=== PATIENT | female | born 1995 | race Caucasian/White ===

== ENCOUNTER 2016-11-24 11:55 | Emergency (ER) | payer MEDICAID ==
--- NOTE | 2016-11-27 18:24 | ER ---
ADMIT: 11/24/2016 RM/LOC: ER [facility] MR#: [id number] [facility] [address] [place] [id number] SAWANTMARY KAYDEANA Porsha [address] [place] [address] Emergency Room Report SEX: F AGE: 21 : 1995 DATE: 11/24/2016 HISTORY OF PRESENT ILLNESS: The patient is a 21-year-old female, presents to the emergency room tearful, complaining of anxiety for one year, worse in the last couple of days. She says she has had several things happened last year. She lost her . Her son got very sick and had surgery. 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 Has stressed her. She does have a new job that she will start pretty soon. She has gone to [facility], but have not received any medications to help with her issues at this point. PHYSICAL EXAMINATION: VITAL SIGNS: 121/76 with a heart rate of 98, respirations 16, temp is 97.3, and O2 sats 100%. GENERAL: She is oriented x4, but is tearful and depressed. NEURO: Cranial nerves II through XII intact. Sensory and motor intact. NECK: Supple. SKIN: Good color. EXTREMITIES: Nontender. LABORATORY DATA: No labs are done at this time. CLINICAL IMPRESSION: Anxiety reaction, depression, single episode panic attack. PLAN: She was given a prescription for Prozac and Xanax. Encouraged to follow up with her primary provider in the next month and explained that she would have to be seen later on at 6 months and then a year and re-evaluated again and see if she needs to continue the use of the antidepressant Prozac. The patient verbalized understanding. She was released and her boyfriend will be driving her home. ELIF Betancourt / Girish Lucio MD / verena JOB #: [id number] CC: Girish Lucio MD, Attending Physician Neftaly Adair MD, Family Physician
== END 2016-11-24 13:15 | disposition home or self-care (01) ==
LOC: ER 11:55
DX: F41.0 Panic disorder [episodic paroxysmal anxiety] (principal); F32.9 Major depressive disorder, single episode, unspecified